=== PATIENT | male | born 1955 | race Two or more races ===

== ENCOUNTER → 2025-03-05 | Outpatient (CLI) | payer MEDICARE, MEDICAID, SELFPAY ==
--- NOTE | 2025-03-05 11:30 | XR_ITS ---
Examination: Retroperitoneal ultrasound, complete Technique: Multiple high resolution grayscale images of the retroperitoneum obtained, including kidneys and bladder. 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
== END | disposition home or self-care (01) ==
LOC: CDIM 10:37
PROVIDERS: PCP Registered Nurse Community Health; Referring Provider Registered Nurse Community Health; Visit Provider Registered Nurse Community Health
DX: N28.1 Cyst of kidney, acquired (principal); N28.89 Other specified disorders of kidney and ureter
CPT/HCPCS: 76770

== ENCOUNTER 2025-06-14 15:40 | Emergency (ER) | payer MEDICARE, MEDICAID, SELFPAY ==
[2025-06-14 15:40] VITALS: BMI 16.7
--- NOTE | 2025-06-14 15:49 | XR_ITS ---
Examination: CT abdomen and pelvis without contrast. Coronal 3-D reconstructions. Sagittal 2-D reconstructions. Date and time of exam:June 14, 2025 1606 hours Comparison June 29, 2011 INDICATIONS: Left lower abdominal pain and weakness after falling 3 weeks ago CTDI: vol (mGy): 4.53 DLP: (mGycm): 253 Technique: Axial images of the abdomen have been obtained, 3 mm slice thickness Intravenous contrast material has not been administered. Low dose protocols were performed. One or more of the following dose reduction techniques were used; automated exposure control, adjustment of the mA and/or KV according to patient size, use of iterative reconstruction technique. Findings: No pneumothorax No liver splenic or renal laceration on this noncontrast study No perinephric hematoma Large amounts of stool throughout the entire colon Absent gallbladder No extra hepatic biliary tract dilatation 13 mm staghorn calculus lower pole calyx left kidney 1 mm calculus upper pole left kidney No hydronephrosis or ureteral calculi Abdominal aortic calcification No bowel obstruction No diverticulitis Transverse prostate dimension 4.7 cm No bladder mass Severe osteopenia, advanced disc narrowing L5-S1, no lumbar or sacral fracture Bones of the pelvis hips intact IMPRESSION: No pneumothorax No abdominal parenchymal laceration Large amounts of stool throughout the entire colon, significant constipation 13 mm I: Calculus lower pole left kidney Moderate prostatomegaly
--- NOTE | 2025-06-14 15:50 | PD.EDRME ---
Rapid Medical Screening Exam E Arrival date/time: 06/14/25 15:40 CC: Right upper abdomen and right lower chest pain status post fall with progressive worsening in severity and sensation of splitting open . HPI onset 3 weeks ago after a fall. Patient was seen after the fall by PCP without any interventions. Patient has a history of pancreatitis. Chief Complaint: Abdominal Pain Time Seen by Provider: 06/14/25 15:45
[2025-06-14 15:52] VITALS: BP 155/72; PULSE 67; RESP 18; TEMP 37.1; O2SAT 99
[2025-06-14 16:18] LABS: Basophils # (Auto) 0.2 Thou/mm3 (0.0-0.2); Basophils % (Auto) 2 % (0-2.5); Eosinophils # (Auto) 0.2 Thou/mm3 (0.0-0.5); Eosinophils % (Auto) 2 % (0-10); Hematocrit 35.3 % (41.0-53.0); Hemoglobin 11.7 g/dL (13.5-16.0); Immature Granulocytes Auto 0.02 Thou/mm3 (0.00-0.00); Lymphocytes # (Auto) 1.9 Thou/mm3 (1.0-4.8); Lymphocytes % (Auto) 20 % (10-50); Mean Corpuscular HGB Conc 33.1 g/dl (31.0-37.0); Mean Corpuscular Hemoglobin 31.5 pg (25.0-35.0); Mean Corpuscular Volume 95 fL (80-100); Monocytes # (Auto) 0.7 Thou/mm3 (0.0-0.8); Monocytes % (Auto) 7 % (0-12); Neutrophils # (Auto) 6.6 Thou/mm3 (1.8-7.7); Neutrophils % (Auto) 70 % (37-80); Nucleated Red Blood Cell # 0.00 Thou/mm3 (0.00-0.00); Nucleated Red Blood Cell % 0 /100 WBC (0); Platelet Count 311 Thou/mm3 (140-440); RDW Standard Deviation 48.8 fL (35.1-43.9); Red Blood Count 3.71 Miln/mm3 (4.50-5.90); White Blood Count 9.4 Thou/mm3 (3.8-10.6)
[2025-06-14 16:33] LABS: Collection Type, Urine Clean Catch; Squamous Epithelial Cell,Urine 0 /hpf (0-5)
[2025-06-14 16:39] LABS: Bilirubin,Urine Negative (Negative); Blood,Urine 2+ (Negative); Clarity,Urine Clear (Clear/Hazy); Color,Urine Lt-Yellow (Lt Yel-Yel); Glucose, Urine Negative (Negative); Ketones,Urine Negative (Negative); Leukocyte Esterase,Urine Negative (Negative); Nitrite,Urine Negative (Negative); PH,Urine 5.5 (5.0-7.0); Protein,Urine Negative (Neg - Trace); RBC,Urine 37 /hpf (0-3); Specific Gravity,Urine 1.019 (1.001-1.035); Urobilinogen,Urine Negative mg/dL (0.0-1.0); WBC,Urine 1 /hpf (0-5)
[2025-06-14 16:43] LABS: B-Type Natriuretic Peptide 27 pg/mL (0-100)
[2025-06-14 16:44] LABS: Alanine Aminotransferase 29 U/L (10-49); Albumin, Serum 4.1 gm/dL (3.4-4.8); Albumin/Globulin Ratio 1.8 (1.2-2.2); Alkaline Phosphatase 95 U/L (46-116); Anion Gap 9 (7-16); Aspartate Amino Transferase 31 U/L (0-34); BUN/Creatinine Ratio 13 Ratio (12-20); Bilirubin,Total 0.3 mg/dL (0.3-1.2); Blood Urea Nitrogen 18 mg/dL (9-23); Calcium 9.2 mg/dL (8.3-10.6); Calcium (Corrected) 9.2 mg/dL (8.5-10.1); Carbon Dioxide 23.2 mMol/L (20.0-31.0); Chloride 111 mMol/L (98-107); Creatinine (Component) 1.4 mg/dL (0.6-1.3); Estimated Creatinine Clearance 34.6 mL/min (>60); Globulin 2.3 gm/dL (2.3-3.5); Glucose 115 mg/dL (74-106); Lipase 18 U/L (12-53); Magnesium 1.4 mg/dL (1.6-2.6); Osmolality,Calculated 287 (275-295); Potassium 5.4 mMol/L (3.4-5.1); Sodium 143 mMol/L (136-145); Total Protein 6.4 gm/dL (5.7-8.2); eGFR 54 See Note
[2025-06-14 16:46] LABS: Amphetamine/Methamp Scrn,U Negative (Negative); Barbiturate Screen,Urine Negative (Negative); Benzodiazepines Screen,Urine Negative (Negative); Benzoylecgonine Screen, Ur Negative (Negative); Fentanyl Screen,Urine Negative (Negative); Opiate Screen,Urine Negative (Negative); THC Screen,Urine Negative (Negative)
--- NOTE | 2025-06-14 16:47 | EDNOTE_ITS ---
ED Abdominal Pain RME/HPI General Chief Complaint: Abdominal Pain Stated complaint: LLQ PAIN X3WK Time seen by provider: 06/14/25 15:45 Arrival date/time: 06/14/25 15:40 RME / HPI RME / HPI narrative: 70-year-old male patient with significant history of hypertension diabetes mellitus came in for evaluation regarding right upper abdomen and right lower chest pain status post fall with progressive worsening in severity and sensation of splitting open . Patient sustained a fall about 3 weeks ago after trip and fall. Patient was seen after the fall by PCP without any interventions. Patient has a history of pancreatitis. Patient denies any other complaints. Patient is ambulatory. Related Data Previous Rx's ?Medication ?Instructions ?Recorded lactulose 20 gram oral packet 20 g PO BID PRN constipa tion #30 ea 06/14/25 (Kristalose) Allergies Allergy/AdvReac Type Severity Reaction Status Date / Time No Known Allergies Allergy Verified 06/14/25 15:43 Review of Systems Review of Systems Narrative Review of Systems: Review of system reviewed and within normal limits except mentioned in HPI ED Exam Narrative Physical exam: VITAL SIGNS: Reviewed. GENERAL APPEARANCE: Alert and interactive, follows commands, no acute distress, HEAD AND FACE: Non-traumatic. ENT: PERRL, pink conjunctivitis, eyelid no trauma, Mucous membrane moist. NECK: Supple, nontender, no nuchal rigidity. CHEST: Left lateral lower rib cage tenderness, no crepitus, no paradoxical movement, no retractions. LUNGS: Clear, well ventilated, symmetric, no rales, no wheezing, no ronchi, no stridor, good breath sounds bilaterally. HEART: Regular rate, regular rhythm, no murmur, no gallops. ABDOMEN: Soft, positive bowel sounds, nondistended, no guarding, left lateral abdominal tenderness, no rebound, no masses, RECTAL: Deferred. GENITAL: Deferred. NEUROLOGICAL: Gross motor function intact sensory function intact, Appropriate for age. MUSCULOSKELETAL: low back nontender, full range of motion. EXTREMITIES: Nontender, full range of motion. SKIN: Color pink, dry, no rash, no lacerations, no abrasions, no contusions. LYMPHATICS: Deferred. Course Quality Measures none Orders Category Date Time Status Insert IV NOW Care 06/14/25 18:[address] abdomen pelvis wo con Stat Exams 06/14/25 15:49 Completed B-Type Natriuretic Peptide Stat Lab 06/14/25 16:06 Completed CBC Stat Lab 06/14/25 16:06 Completed Comprehensive Metabolic Panel Stat Lab 06/14/25 16:06 Completed Drug Screen,Urine Stat Lab 06/14/25 16:29 Completed Lipase Stat Lab 06/14/25 16:06 Completed Magnesium Stat Lab 06/14/25 16:06 Completed Partial Thromboplastin Time Stat Lab 06/14/25 18:25 Completed Prothrombin Time with INR Stat Lab 06/14/25 18:25 Completed Urinalysis Stat Lab 06/14/25 16:29 Completed Magnesium Sulfate 2 GM Ivpb [Magnesium Sulfate Ivpb] Med 06/14/25 18:10 Discontinued 2 gm in 50 ml IV X1 Sod Polystyrene Sulfon Susp [Kayexalate Susp] Med 06/14/25 18:06 Discontinued 30 gm PO X1 ONE Sodium Chloride 0.9% 1000 ml [Ns] 1,000 ml Med 06/14/25 18:08 Discontinued IV 999 mls/hr Vital Signs Vital signs: Vital Signs Temperature 98.8 F 06/14/25 15:52 Pulse Rate 67 06/14/25 15:52 Respiratory Rate 18 06/14/25 15:52 Blood Pressure 155/72 H 06/14/25 15:52 Pulse Oximetry (%) 99 06/14/25 15:52 Oxygen Delivery Method Room Air 06/14/25 15:52 Abdominal Pain MDM MDM Narrative MDM Narrative:: 70-year-old male patient with significant history of hypertension diabetes mellitus came in for evaluation regarding right upper abdomen and right lower chest pain status post fall with progressive worsening in severity and sensation of splitting open . Patient sustained a fall about 3 weeks ago after trip and fall. Patient was seen after the fall by PCP without any interventions. Patient has a history of pancreatitis. Patient denies any other complaints. Patient is ambulatory. Patient CBC showed slight anemia of 11.7 CMP potassium 5.4 chloride 111. Creat inine 1.4 magnesium 1.[address] scan of the abdomen and pelvis came back with No pneumothorax No abdominal parenchymal laceration Large amounts of stool throughout the entire colon, significant constipation 13 mm I: Calculus lower pole left kidney Moderate prostatomegaly Patient received IV fluids, Kayexalate, and magnesium IV. Results discussed with the patient. Patient stable for discharge home. Patient data External records reviewed:: None Clinical information provided by:: patient Social determinants that could affect healthcare access:: none Patient has the following chronic illnesses:: None How is presenting disease/condition affected by chronic disease/condition?: no chronic disease Evaluation data The following diagnostics were reviewed and interpreted by me:: lab results and radiology exam(s) Lab and/or radiology exams considered but not ordered:: None Interpretation Summary: See results MDM see results MDM Medications / Prescriptions Medications or Prescriptions considered but not ordered:: None Medication administrations:: Medication Administration History Discontinued Medications Sodium Chloride (Ns) 1,000 mls @ 999 mls/hr IV .Q1H1M ONE Stop: 06/14/25 19:08 Last Infusion: 06/14/25 19:28 Dose: Infused Documented By: Admin: 06/14/25 18:27 Dose: 999 mls/hr Documented By: RONEY Magnesium Sulfate (Magnesium Sulfate Ivpb) 2 gm in 50 mls @ 25 mls/hr IV X1 ONE Stop: 06/14/25 20:09 Last Infusion: 06/14/25 20:27 Dose: Infused Documented By: Admin: 06/14/25 18:27 Dose: 25 mls/hr Documented By: RONEY Sodium Polystyrene Sulfonate (Sod Polystyrene Sulfon Susp 15 Gm/60 Ml Btl) 30 gm PO X1 ONE Stop: 06/14/25 18:07 Last Admin: 06/14/25 18:27 Dose: 30 gm Documented By: RONEY IV fluids, magnesium sulfate and Kayexalate Consultations Consultation(s) initiated? (list below): No Diagnosis Differential diagnosis abdominal pain: abdominal pain and constipation Most likely diagnosis given after review of the tests above:: Abdominal pain with constipation Admission Indicated Admission indicated?: not indicated Admission Request Was there a request for admission?: No Disposition Plan Disposition Plan: Discharge Discharge Attestation Discharge Attestation: The patient and all family members were given an opportunity to ask questions and understood the discharge instructions. Discharge instructions specifically effects, indications for sooner follow up or return to the emergency department, and the expected course of current diagnosis. Patient condition: Stable Discharge Plan Plan Patient Disposition: HOME (Self Care) Discharge Disposition comment: stable Prescriptions/Referrals Prescriptions/Med Rec: New lactulose [Kristalose] 20 gram packet 20 g PO BID PRN (Reason: constipation) Qty: 30 0RF Referrals: Cortes,[place], EDUCATIONAL THERAPY TEACHER [Primary Care Provider] - In 1 week Problem List Clinical Impression: Abdominal pain, Constipation Patient/Caregiver Discharge Instructions Discharge Activity: activity as tolerated Education Materials: Treating Constipation Additional Instructions: Thank you for the opportunity for serving you today. You are stable for discharged . You are advised to: Follow-up with your PCP in 1 to 2 days Return to ED for worsening of symptoms Increase oral fluids Take medication as prescribed Print Language: Nigerien Stand Alone Forms: Jennifer Award Info., Patient Portal Info Letter DAYANA/ABI Supervising Physician EBONY Supervising Physician: MD Karly
[2025-06-14 17:21] VITALS: BP 142/81; PULSE 62; RESP 16; TEMP 36.5; O2SAT 99
[2025-06-14] MEDS: SODIUM CHLORIDE 0.9% 1000 ML 1,000 ML 999 ML IV (18:27)
[2025-06-14] MEDS: Magnesium Sulfate 2 GM Ivpb 2 GM/50 ML BAG IV (18:27)
[2025-06-14] MEDS: SOD POLYSTYRENE SULFON SUSP 15 GM/60 ML BTL 30 GM PO (18:27)
[2025-06-14 18:42] VITALS: BP 140/88; PULSE 58; RESP 16; TEMP 36.9; O2SAT 99
[2025-06-14 18:48] LABS: INR 1.0 (0.9-1.3); Partial Thromboplastin Time 27.3 Seconds (22.0-36.0); Prothrombin Time 10.9 Seconds (9.0-12.2)
[2025-06-14 20:30] VITALS: BP 127/63; PULSE 62; RESP 17; O2SAT 99
[2025-06-14 20:54] VITALS: BP 127/63; PULSE 64; RESP 18
== END 2025-06-14 20:57 | disposition home or self-care (01) ==
PROVIDERS: Registered Nurse General Practice; Emergency Provider Emergency Medicine; PCP Registered Nurse Community Health
DX: K59.00 Constipation, unspecified (principal); N20.0 Calculus of kidney
CPT/HCPCS: 36415; 74176; 80053; 80307; 81001; 83690; 83735; 83880; 85025; 85610; 85730; 96365; 96366; 99283; J3475; J7030; A9270

== ENCOUNTER → 2025-07-27 | Outpatient (CLI) | payer MEDICARE, MEDICAID, SELFPAY ==
--- NOTE | 2025-07-27 10:30 | ECHO_ITS ---
Transthoracic Echo Report Ht (in): 68 Wt (lb): 115 Exam Location: Echo Lab Status: Preadmit Horologist Apprentice: Holly Fuller Indications: Procedure Performed: BP: 182 / 83 HR: 49 MEASUREMENTS (Male / Female) Normal Values 2D ECHO LV Diastolic Diameter PLAX 4.6 cm 4.2 - 5.9 / 3.9 - 5.3 cm LV Systolic Diameter PLAX 2.8 cm IVS Diastolic Thickness 0.7 cm 0.6 - 1.0 / 0.6 - 0.9 cm LVPW Diastolic Thickness 1.1 cm 0.6 - 1.0 / 0.6 - 0.9 cm LV Relative Wall Thickness 0.4 LVOT Diameter 1.9 cm LA Volume Index 35.9 cm?/m? 16 - 28 cm?/m? Ascending Aorta Diameter 3.2 cm M-MODE AV Cusp Separation MM 1.5 cm DOPPLER AV Peak Velocity 135.0 cm/s AV Peak Gradient 7.3 mmHg AV Mean Gradient 4.0 mmHg AV Velocity Time Integral 37.7 cm LVOT Peak Velocity 80.7 cm/s LVOT Peak Gradient 2.6 mmHg LVOT Velocity Time Integral 22.1 cm LVOT Cardiac Index 1957.6 cm?/min?m? AV Area Cont Eq vti 1.7 cm? AV Area Cont Eq pk 1.7 cm? MV Area PHT 1.7 cm? Mitral E Point Velocity 61.1 cm/s Mitral A Point Velocity 91.2 cm/s Mitral E to A Ratio 0.7 LV E' Lateral Velocity 4.8 cm/s Mitral E to LV E' Lateral Ratio 12.8 LV E' Septal Velocity 5.0 cm/s Mitral E to LV E' Septal Ratio 12.2 TR Peak Velocity 179.5 cm/s TR Peak Gradient 12.9 mmHg PV Peak Velocity 95.0 cm/s PV Peak Gradient 3.6 mmHg FINDINGS Left Ventricle Normal left ventricular size, wall thickness, systolic function with no obvious regional wall motion abnormalities. There is grade I diastolic dysfunction of the left ventricle (impaired relaxation pattern). The ejection fraction is visually estimated at 55-60 %. Right Ventricle The right ventricle is normal in size and systolic function. Left Atrium The left atrium is normal by two-dimensional, color flow and Doppler imaging with no structural abnormalities, no thrombus formation present. Right Atrium The right atrium is normal by two-dimensional imaging, color flow and Doppler imaging with no structural abnormalities, no thrombus formation present. Atrial Septum The interatrial septum appears normal with no evidence of a shunt. Aorta The aorta is normal by two-dimensional, color flow and Doppler interrogation. Mitral Valve Mild thickening of the mitral valve leaflets. Mild mitral regurgitation. Aortic Valve Aortic valve sclerosis without stenosis.trace to mild aortic valve regurgitation. Tricuspid Valve The tricuspid valve is normal by two-dimensional, color flow and Doppler interrogation. There is mild tricuspid valve regurgitation. Pulmonic Valve The pulmonic valve is not well visualized. There is no significant pulmonic valve regurgitation. Vessels The pulmonary artery appears normal. The inferior vena cava pulmonary and hepatic veins appear normal. Pericardium The pericardium is normal by two-dimensional imaging. There is no significant pericardial effusion. CONCLUSIONS Indication: Primary hypertension Normal left ventricular size and function. Grade I diastolic dysfunction. Estimated EF 55-60% Normal Right ventricular size and function. Normal RVSP Mild thickening of the mitral valve leaflets. Mild Aortic valve sclerosis without stenosis Mild MR,TR and AR. No pericardial effusion Antoine Reich (Electronically Signed) Final Date: 27 July 2025 16:38
== END | disposition home or self-care (01) ==
LOC: SDIM 09:55
PROVIDERS: PCP Registered Nurse Community Health; Referring Provider Registered Nurse Community Health; Visit Provider Registered Nurse Community Health
DX: I35.8 Other nonrheumatic aortic valve disorders (principal); I08.3 Combined rheumatic disorders of mitral, aortic and tricuspid valves
CPT/HCPCS: 93306

== ENCOUNTER → 2025-10-08 | Outpatient (CLI) | payer OTHER, MEDICAID, SELFPAY ==
[2025-10-08 07:52] LABS: Basophils # (Auto) 0.2 Thou/mm3 (0.0-0.2); Basophils % (Auto) 1 % (0-2.5); Eosinophils # (Auto) 0.2 Thou/mm3 (0.0-0.5); Eosinophils % (Auto) 1 % (0-10); Hematocrit 41.1 % (41.0-53.0); Hemoglobin 13.8 g/dL (13.5-16.0); Immature Granulocytes Auto 0.06 Thou/mm3 (0.00-0.00); Lymphocytes # (Auto) 1.4 Thou/mm3 (1.0-4.8); Lymphocytes % (Auto) 10 % (10-50); Mean Corpuscular HGB Conc 33.6 g/dl (31.0-37.0); Mean Corpuscular Hemoglobin 31.2 pg (25.0-35.0); Mean Corpuscular Volume 93 fL (80-100); Monocytes # (Auto) 0.7 Thou/mm3 (0.0-0.8); Monocytes % (Auto) 5 % (0-12); Neutrophils # (Auto) 11.9 Thou/mm3 (1.8-7.7); Neutrophils % (Auto) 83 % (37-80); Nucleated Red Blood Cell # 0.00 Thou/mm3 (0.00-0.00); Nucleated Red Blood Cell % 0 /100 WBC (0); Platelet Count 304 Thou/mm3 (140-440); RDW Standard Deviation 47.9 fL (35.1-43.9); Red Blood Count 4.43 Miln/mm3 (4.50-5.90); White Blood Count 14.4 Thou/mm3 (3.8-10.6)
[2025-10-08 08:03] LABS: Glucose Estimated Average 146 mg/dL (80-131); Hemoglobin A1C 6.7 % Hgb (4.8-6.0)
[2025-10-08 08:19] LABS: Alanine Aminotransferase 26 U/L (10-49); Albumin, Serum 4.7 gm/dL (3.4-4.8); Albumin/Globulin Ratio 1.9 (1.2-2.2); Alkaline Phosphatase 134 U/L (46-116); Anion Gap 10 (7-16); Aspartate Amino Transferase 24 U/L (0-34); BUN/Creatinine Ratio 15 Ratio (12-20); Bilirubin,Total 0.4 mg/dL (0.3-1.2); Blood Urea Nitrogen 16 mg/dL (9-23); Calcium 9.3 mg/dL (8.3-10.6); Calcium (Corrected) 9.3 mg/dL (8.5-10.1); Carbon Dioxide 25.6 mMol/L (20.0-31.0); Cardiac Risk Estimate 2.2 RATIO (4.0-6.7); Chloride 110 mMol/L (98-107); Cholesterol 122 mg/dL (132-200); Creatinine (Component) 1.1 mg/dL (0.6-1.3); Globulin 2.5 gm/dL (2.3-3.5); Glucose 142 mg/dL (74-106); HDL Cholesterol 56 mg/dL (40-60); LDL Cholesterol,Calculated 53 mg/dL (0-130); Osmolality,Calculated 293 (275-295); Potassium 4.4 mMol/L (3.4-5.1); Sodium 146 mMol/L (136-145); Total Protein 7.2 gm/dL (5.7-8.2); Triglycerides 65 mg/dL (30-150); eGFR > 60 See Note
[2025-10-08 09:08] LABS: Creatinine MALB Rnd Ur 66 mg/dL (30-125); Microalbumin Creat Ratio 47 mg/gCrea (<30); Microalbumin, Random Urine 31 mg/L (0-300)
== END | disposition home or self-care (01) ==
LOC: COPL 07:20
PROVIDERS: PCP Family Medicine; Referring Provider Registered Nurse Community Health; Visit Provider Registered Nurse Community Health
DX: E11.65 Type 2 diabetes mellitus with hyperglycemia (principal); I10 Essential (primary) hypertension; E78.2 Mixed hyperlipidemia
CPT/HCPCS: 36415; 80053; 80061; 82043; 82570; 83036; 85025